=== PATIENT | female | born 1970 | race Caucasian/White ===

== ENCOUNTER 2022-10-14 19:38 | Emergency (ER) | payer OTHER ==
[2022-10-14 20:02] VITALS: TEMP 98; BMI 24.9
[2022-10-14 20:12] LABS: HEMATOCRIT 36.4 % (32.4-45.2); HEMOGLOBIN 12.4 G/dL (10.7-15.3); MCHC 34.1 g/dl (32.0-36.0); MEAN CELL VOLUME 88.1 fl (80-96); MEAN PLT VOLUME 8.6 fl (7.5-11.1); PLATELET COUNT 173.7 10^3/uL (134-434); RBC 4.13 10^6/uL (3.60-5.2); RDW 14.7 % (11.6-15.6); WHITE BLOOD COUNT 6.8 10^3/uL (4.0-10.8)
[2022-10-14 20:32] VITALS: RESP 16
[2022-10-14 20:35] LABS: BILIRUBIN,TOTAL 0.7 mg/dl (0.2-1); BLOOD UREA NITROGEN 11.9 mg/dl (7-18); CALCIUM 8.9 mg/dl (8.5-10.1); CREATININE 0.8 mg/dl (0.6-1.3); SGOT/AST 19.5 U/L (15-37); SGPT/ALT 12.7 U/L (7-52); TOT PROT 6.2 g/dl (6.4-8.2)
[2022-10-14 22:13] VITALS: BP 151/81; PULSE 64
== END 2022-10-14 22:15 | disposition home or self-care (01) ==
LOC: FER 19:38
DX: R60.0 Localized edema (principal); R06.00 Dyspnea, unspecified; R07.89 Other chest pain
CPT/HCPCS: 36415; 71275-TC; 80053; 82550; 82553; 84484; 85027; 93005; 93970-TC; 99285-25; Q9967

== ENCOUNTER 2023-07-15 22:15 | Emergency (ER) | payer OTHER ==
[2023-07-15 22:21] VITALS: BP 150/86; PULSE 87; RESP 20; TEMP 98; BMI 33.3
[2023-07-15] MEDS ORDERED: KETOROLAC TROMETHAMINE 15 MG/ML VIAL ONE (23:23)
[2023-07-15] MEDS: SODIUM CHLORIDE 1,000 ML IV STA (23:38)
[2023-07-15] MEDS: KETOROLAC TROMETHAMINE 30 MG/1 ML VIAL IVPUSH ONE (23:38)
[2023-07-15 23:42] LABS: BASO % 0.8 % (0-2.0); EOS % 0.9 % (0-4.5); HEMATOCRIT 36.1 % (32.4-45.2); HEMOGLOBIN 11.9 GM/dL (10.7-15.3); LYMPH % 18.4 % (8-40); MCH 28.8 pg (25.7-33.7); MCHC 33.1 g/dl (32.0-36.0); MEAN CELL VOLUME 86.8 fl (80-96); MEAN PLT VOLUME 8.2 fl (7.5-11.1); NEUT % 73.9 % (42.8-82.8); PLATELET COUNT 309 10^3/uL (134-434); RBC 4.15 M/mm3 (3.60-5.2); RDW 15.1 % (11.6-15.6); WHITE BLOOD COUNT 10.2 K/mm3 (4.0-10.0)
[2023-07-15 23:43] LABS: URINE APPEARANCE Error; URINE BILIRUBIN NEGATIVE (NEGATIVE); URINE COLOR YELLOW; URINE GLUCOSE (UA) NEGATIVE (NEGATIVE); URINE KETONE NEGATIVE (NEGATIVE); URINE LEUK ESTERASE NEGATIVE (NEGATIVE); URINE NITRITE NEGATIVE (NEGATIVE); URINE PROTEIN NEGATIVE (NEGATIVE); URINE UROBILINOGEN 0.2 mg/dL (0.2-1.0)
[2023-07-15 23:55] LABS: HCG,QUALITATIVE URINE Negative
[2023-07-15 23:58] LABS: POTASSIUM 3.9 mmol/L (3.5-5.1)
[2023-07-16] LABS: CALCIUM 9.2 mg/dL (8.5-10.1)
[2023-07-16 00:01] LABS: ALBUMIN 3.4 g/dl (3.4-5.0); BLOOD UREA NITROGEN 5.8 mg/dL (7-18)
[2023-07-16 00:03] LABS: CREATININE 0.8 mg/dL (0.55-1.3)
[2023-07-16 00:05] LABS: BILIRUBIN,TOTAL 0.7 mg/dL (0.2-1); TOT PROT 7.4 g/dl (6.4-8.2)
[2023-07-16] MEDS ORDERED: KETOROLAC TROMETHAMINE 15 MG/ML VIAL ONE (02:18)
[2023-07-16] MEDS ORDERED: FAMOTIDINE 20 MG/50 ML IVPB 20 MG/50 ML MG IVPB ONE (02:18)
[2023-07-16] MEDS: FAMOTIDINE 20 MG/50 ML IVPB 20 MG/50 ML MG IVPB ONE (02:23)
[2023-07-16] MEDS: KETOROLAC TROMETHAMINE 15 MG/ML VIAL IVPUSH ONE (02:23)
== END 2023-07-16 03:59 | disposition home or self-care (01) ==
LOC: JER 22:15
PROC: 3E033GC Introduction of Other Therapeutic Substance into Peripheral Vein, Percutaneous Approach (ICD-10-PCS; principal; 2023-07-15)
PROC: 3E033GC Introduction of Other Therapeutic Substance into Peripheral Vein, Percutaneous Approach (ICD-10-PCS; 2023-07-15)
PROC: 3E033GC Introduction of Other Therapeutic Substance into Peripheral Vein, Percutaneous Approach (ICD-10-PCS; 2023-07-16)
DX: R10.32 Left lower quadrant pain (principal); D25.9 Leiomyoma of uterus, unspecified
CPT/HCPCS: 36415; 74177-TC; 80053; 81003; 83690; 84703; 85025; 87086; 93005; 93010; 99285-25; Q9967